=== PATIENT | male | born 1980 | race Caucasian/White ===

== ENCOUNTER → 2017-09-30 | Outpatient (CLI) | payer SELFPAY ==
[2017-05-02 10:18] VITALS: BP 162/93
[~2017-09-30] MED LIST: LEVAQUIN 750MG750 M1 PO; ZOFRAN ODT4 MG PO
== END ==
LOC: RAD 10:12
DX: M25.511 Pain in right shoulder (principal)

== ENCOUNTER 2019-02-24 18:37 | Emergency (ER) | payer SELFPAY ==
[~2019-02-24] VITALS: Ht 177.8 cm; Wt 90.9 kg
[2019-02-24] MEDS ORDERED: SERTRALINE50 MG PO (18:43)
[2019-02-24] MEDS ORDERED: ASPIRIN ADULT L81 M3 PO (18:44)
[2019-02-24] MEDS ORDERED: LISINOPRIL10 MG PO (18:44)
[2019-02-24 19:23] LABS: EOS # 0.2 (0.04-0.40); EOS % 1.7 % (0.0-4.0); HEMATOCRIT 47.1 % (42.0-52.0); HEMOGLOBIN 16.4 g/dL (13.5-18.0); LYMPH# 2.2 (1.50-4.00); MEAN CELL VOLUME 85 fl (78-100); MEAN CORPUSCULAR HEMOGLOBIN 29 pg (27-31); MEAN CORPUSCULAR HGB CONC 35 g/dL (33-37); MEAN PLATELET VOLUME 11.4 fl (7.4-10.4); MONO # 0.7 (0.20-0.80); NEU # 8.1 (1.40-6.50); PLATELET COUNT 248 K/mm3 (130-400); RED BLOOD COUNT 5.57 M/mm3 (4.20-5.60); RED CELL DISTRIBUTION WIDTH 13.6 % (11.5-14.5); WHITE BLOOD COUNT 11.3 K/mm3 (4.8-10.8)
[2019-02-24 19:28] LABS: ALBUMIN 4.6 g/dL (3.5-5.0); POTASSIUM 3.4 mmol/L (3.5-5.1)
[2019-02-24 19:29] LABS: CALCIUM 10.2 mg/dL (8.3-10.5)
[2019-02-24 19:30] LABS: TOTAL PROTEIN 8.3 g/dL (6.4-8.3)
[2019-02-24 19:32] LABS: TOTAL BILIRUBIN 0.8 mg/dL (0.2-1.2)
[2019-02-24 19:45] LABS: URINE APPEARANCE CLEAR; URINE BILIRUBIN NEGATIVE (NEGATIVE); URINE BLOOD NEGATIVE (NEGATIVE); URINE COLOR YELLOW; URINE GLUCOSE NEGATIVE (NEGATIVE); URINE KETONE NEGATIVE (NEGATIVE); URINE LEUKOCYTE ESTERASE TRACE (NEGATIVE); URINE NITRATE NEGATIVE (NEGATIVE); URINE PROTEIN(semi-quant) TRACE mg/dL (NEGATIVE); URINE UROBILINOGEN NORMAL (NORMAL)
[2019-02-24 19:46] LABS: URINE WBC 0-1 /hpf (0-3)
[2019-02-24 19:47] LABS: ACETAMINOPHEN < 1 ug/mL; ALCOHOL IN-HOUSE < 10 mg/dL (<10)
[2019-02-26 10:47] VITALS: BP 137/75
== END 2019-02-26 11:46 ==
LOC: ED 18:37
PROVIDERS: Family Medicine
DX: F32.9 Major depressive disorder, single episode, unspecified (principal); R45.851 Suicidal ideations; I10 Essential (primary) hypertension; F15.90 Other stimulant use, unspecified, uncomplicated; Z91.14 Patient's other noncompliance with medication regimen
CPT/HCPCS: J2405; J7030